=== PATIENT | female | born 1940 | race Caucasian/White ===

== ENCOUNTER 2016-08-15 08:41 | Emergency (ER) | payer MEDICARE ==
[2016-08-15 09:00] VITALS: BP 165/63
--- NOTE | 2016-08-15 09:13 | UC ---
Complaint Female HPI - History Of Current Complaint Chief Complaint: [facility] Stated Complaint: BLOOD IN URINE Time Seen by Provider: 08/15/16 09:01 Hx Obtained From: Patient ?: No Onset/Duration: Gradual Onset - 2 weeks with frequency/ urgency but no dysuria, Lasting Weeks - 2, Worse Since - this morning with sandra blood and clots. Timing: Constant Severity Initially: Mild Severity Currently: Moderate Character: Dull Aggravating Factor(s): Urination Alleviating Factor(s): Nothing Associated Signs And Symptoms: Positive: Negative - Risk Factors Ectopic Risk Factor: Negative Ovarian Torsion Risk Factor: Negative - Allergies/Home Medications Allergies/Adverse Reactions: Allergies Allergy/AdvReac Type Severity Reaction Status Date / Time Celecoxib [From Celebrex] Allergy Swelling Verified 08/15/16 09:00 Of Face,Lips,& Throat Home Medications: Home Medications Calcium Carbonate-Vitamin D [Calcium 600 + D 600-400 mg-Unit] 1 tab PO DAILY [History Confirmed 08/15/16] Candesartan Cilexetil 8 mg PO DAILY 08/15/16 [History Confirmed 08/15/16] Mycophenolate Mofetil [Cellcept] 250 mg PO BID 08/15/16 [History Confirmed 08/15] Pyridestigmind 60 mg PO TID 08/15/16 [History Confirmed 08/15/16] PMH/Surg Hx/FS Hx/Imm Hx Endocrine History Of: Reports: Diabetes Denies: Thyroid Disease Cardiovascular History Of: Reports: Hypertension, Myocardial Infarction Denies: Congestive Heart Failure Comment Only: Cardiac Disorders - CAD Respiratory History Of: Denies: COPD GI/ History Of: Denies: Renal Disease - Surgical History Surgical History: Yes Surgery Procedure, Year, and Place: cardiac stents X 2, laser for bilateral cateracts, carpal tunnel right hand, RIGHT breast LUMPECTOMY - Family History Known Family History: Positive: Cardiac Disease, Hypertension, Diabetes - Social History Occupation: Retired Lives: With Family Alcohol Use: None Substance Use Type: None Smoking Status (MU): Former Smoker Have You Smoked in the Last Year: No When Did the Patient Quit Smoking/Using Tobacco: 2006 Review of Systems Genitourinary: Hematuria, Frequency, Urgency All Other Systems Reviewed And Are Negative: Yes Physical Exam Triage Information Reviewed: Yes Appearance: Well-Appearing, Well-Nourished, Obese Vital Signs: Initial Vital Signs Temp 97.7 F 08/15/16 08:46 Pulse 100 08/15/16 08:46 Resp 22 08/15/16 08:46 BP 165/63 08/15/16 08:46 Vital Signs Reviewed: Yes Eyes: Positive: Conjunctiva Clear ENT: Positive: Pharynx normal, TMs normal Neck exam: Normal Respiratory: Positive: Lungs clear Cardiovascular: Positive: Murmur:Sys:Grade _?_/ - 2/6 Abdomen Description: Positive: Nontender Musculoskeletal: Positive: Edema @ - bilateral LE left>right, Other: - antalgic gait Neurological Exam: Normal Psychological Exam: Normal Skin Exam: Normal Complaint Female Dx - Differential Dx/Diagnosis Differential Diagnosis/HQI/PQRI: Renal Colic, Ureteral Stone, Urinary Tract Infection Provider Diagnoses: Acute hemorrhagic cystitis Discharge - Discharge Plan Condition: Stable Disposition: HOME Prescriptions: Sulfamethox/Trimethoprim DS* [Bactrim DS 800/160 TAB*] 1 tab PO BID #14 tab Referrals: Sherlyn Rodgers MD [Primary Care Provider] - 2 Weeks (Recheck urine and blood pressure)
== END 2016-08-15 09:49 | disposition home or self-care (01) ==
LOC: UCCORT 08:41
DX: N30.00 Acute cystitis without hematuria (principal); Z88.8 Allergy status to other drugs, medicaments and biological substances; I25.2 Old myocardial infarction; I10 Essential (primary) hypertension; Z95.5 Presence of coronary angioplasty implant and graft; Z98.42 Cataract extraction status, left eye; Z98.41 Cataract extraction status, right eye; Z87.891 Personal history of nicotine dependence
CPT/HCPCS: 81003; 87077; 87086; 99212; G0463